=== PATIENT | female | born 1990 ===

== ENCOUNTER 2016-10-28 23:37 | Emergency (ER) | payer SELFPAY ==
[2016-10-28 23:53] VITALS: RESP 20; O2SAT 99
[2016-10-29 01:03] LABS: RBC URINE 190 /hpf (0-3); URINE BACTERIA RARE (<OCC); URINE BILIRUBIN NEGATIVE (NEGATIVE); URINE BLOOD 3+ (NEGATIVE); URINE COLOR Yellow (YELLOW); URINE GLUCOSE (UA) NORMAL (Normal); URINE KETONE NEGATIVE (NEGATIVE); URINE LEUKOCYTE ESTERASE 3+ Leu/uL (Negative); URINE PROTEIN 1+ mg/dL (NEGATIVE); URINE UROBILINOGEN NORMAL mg/dL (0.2-1.0); WBC CLUMPS MOD /hpf; WBC URINE 494 /hpf (0-5)
--- NOTE | 2016-10-29 01:18 | C.PDOC ---
History Of Present Illness Patient is a 26 year old female who presents to the ER with a complaint of urinary frequency and dysuria since yesterday. Patient denies bleeding, discharge, back pain, fever or Hx of similar symptoms. Time Seen by Provider: 10/28/16 23:42 Chief Complaint (Nursing): Female Genitourinary History Per: Patient History/Exam Limitations: no limitations Onset/Duration Of Symptoms: Days (Since yesterday) Current Symptoms Are (Timing): Still Present Associated Symptoms: Urinary Symptoms (Frequency, dysuria). denies: Fever, Back Pain Alleviating Factors: None Recent travel outside of the [place]: No Abnormal Vaginal Bleeding: No Past Medical History Reviewed: Historical Data, Nursing Documentation, Vital Signs Vital Signs: Last Vital Signs Temp 98.1 F 10/29/16 01:34 Pulse 82 10/29/16 01:34 Resp 20 10/29/16 01:34 BP 110/70 10/29/16 01:34 Pulse Ox 99 10/29/16 02:53 - Medical History PMH: No Chronic Diseases Surgical History: No Surg Hx Family History: States: Unknown Family Hx - Social History Hx Alcohol Use: No Hx Substance Use: No - Immunization History Hx Tetanus Toxoid Vaccination: No Hx Influenza Vaccination: Yes Hx Pneumococcal Vaccination: No Review Of Systems Constitutional: Negative for: Fever Genitourinary: Positive for: Dysuria, Frequency. Negative for: Vaginal Discharge, Vaginal Bleeding Musculoskeletal: Negative for: Back Pain Physical Exam - Physical Exam Appears: Well, Non-toxic, No Acute Distress Skin: Normal Color, Warm, Dry Head: Atraumatic, Normacephalic Eye(s): bilateral: Normal Inspection, EOMI Nose: Normal Oral Mucosa: Moist Neck: Normal, Normal ROM, Supple Chest: Symmetrical, No Tenderness Cardiovascular: Rhythm Regular Respiratory: Normal Breath Sounds, No Accessory Muscle Use, Other (Speaking in complete sentences) Gastrointestinal/Abdominal: Soft, Tenderness (Suprapubic) Back: No CVA Tenderness, No Vertebral Tenderness Neurological/Psych: Oriented x3, Normal Speech, Other (No focal deficits) ED Course And Treatment O2 Sat by Pulse Oximetry: 99 (Room air) Pulse Ox Interpretation: Normal Progress Note: Macrobid and pyridium administered. Urine culture ordered. Discussed with patient, if symptoms persist return to ED. Will discharge home. Disposition - Disposition Referrals: Bree Ortiz MD [Medical Doctor] - Disposition: HOME/ ROUTINE Disposition Time: 01:08 Condition: STABLE Additional Instructions: Follow up with primary medical doctor in 1-3 days without fail for further evaluation. Take medications as prescribed. Return to the emergency department at any time if symptoms persist or worsen. Prescriptions: Nitrofurantoin Macrocrystals [Macrobid] 1 cap PO BID #14 cap Phenazopyridine HCl [Pyridium] 100 mg PO TID #6 tablet Instructions: Urinary Tract Infection in Women (ED) - Clinical Impression Clinical Impression: UTI (urinary tract infection) - Scribe Statement The provider has reviewed the documentation as recorded by the Scribe Dm Serrato All medical record entries made by the Scribe were at my direction and personally dictated by me. I have reviewed the chart and agree that the record accurately reflects my personal performance of the history, physical exam, medical decision making, and the department course for this patient. I have also personally directed, reviewed, and agree with the discharge instructions and disposition.
[2016-10-29 01:35] VITALS: BP 110/70; PULSE 82; TEMP 98.1
== END 2016-10-29 01:35 | disposition home or self-care (01) ==
LOC: C.ER 23:37
DX: N39.0 Urinary tract infection, site not specified (principal)